=== PATIENT | male | born 1990 | race Caucasian/White ===

== ENCOUNTER 2023-04-16 19:23 | Emergency (ER) | payer SELFPAY ==
[2023-04-16] VITALS (31 sets, daily range): BP systolic 135–153; BP diastolic 74–88; PULSE 79–109; RESP 11–25; TEMP 36.8; O2SAT 98–100; BMI 18.1
--- NOTE | 2023-04-16 19:26 | ECG_ITS ---
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
--- NOTE | 2023-04-16 19:33 | CT_ITS ---
The [address] [address] Patient Name: GRISEL TAVERAS MRN: [id number] date: 1990 Sex: M Assigned Patient Location: ER Current Patient Location: ER Accession/Order Number: [id number] Exam Date: 04/16/2023 20:00 Report Date: 04/16/2023 20:32 At the request of: JACK ODOM Procedure: CT cervical spine wo con EXAMINATION: CT cervical spine wo con HISTORY: injury - TECHNIQUE: CT cervical spine without contrast. All CT scans at this facility use dose modulation, iterative reconstruction, and/or weight based dosing when appropriate to reduce radiation dose to as low as reasonably achievable. COMPARISON: None. RESULT: Vertebral body heights and alignment are preserved. Craniocervical junction is maintained. No acute fracture or aggressive osseous abnormality. No significant degenerative disc disease. Paraspinal soft tissues are within normal limits. Imaged lung apices are clear. CT/CT cervical spine wo con IMPRESSION: No acute osseous abnormality of the cervical spine. Electronically authenticated by: LUISA HUYNH Date: 04/16/2023 20:32
--- NOTE | 2023-04-16 19:33 | CT_ITS ---
The [address] [address] Patient Name: GRISEL TAVERAS MRN: [id number] date: 1990 Sex: M Assigned Patient Location: ER Current Patient Location: ER Accession/Order Number: [id number] Exam Date: 04/16/2023 20:00 Report Date: 04/16/2023 20:29 At the request of: JACK ODOM Procedure: CT head/brain wo con EXAM: CT head/brain wo con HISTORY: injury with seizures COMPARISON: None. TECHNIQUE: Multiple computed tomograms of the head were obtained, with sagittal and coronal reconstructions. Radiation reduction technique and algorithms are utilized during the study. FINDINGS: The ventricles are not enlarged, the lateral ventricles are slightly asymmetric but within normal variation, and the third ventricles in the midline. The sylvian fissures and cortical sulci are unremarkable. There is no evidence of an intracranial hemorrhage, mass lesion or apparent acute infarct. There is a small round fluid collection seen along the inferior aspect of the basal ganglia on the left. No other abnormality is seen in the deep white matter. The cerebellum and visualized brainstem are intact. The visualized paranasal sinuses are clear, and the frontal sinuses are undeveloped. The middle ears are aerated. The mastoid sinuses are clear. There is no apparent acute skull fracture. CT/CT head/brain wo con IMPRESSION: There is no evidence of an intracranial hemorrhage, mass lesion or apparent acute infarct. A small fluid collection along the inferior and outer aspect of the basal ganglia on the left may be a remote infarct or possibly prominence of the perivascular spaces. The paranasal sinuses are clear. There is no apparent acute skull fracture. Direct comparison with a previous study may be helpful in determining the chronicity of these findings. If the patient's symptoms persist and further evaluation is clinically indicated then perhaps an MRI the brain would be helpful. Electronically authenticated by: RAVINDER MCKEON Date: 04/16/2023 20:29
--- NOTE | 2023-04-16 19:35 | ED.SEIZURE1 ---
HPI - Seizure General Chief Complaint: Seizure Stated Complaint: SEIZURE Time Seen by Provider: 04/16/23 19:27 Mode of arrival: ambulance History of Present Illness HPI Narrative: patient arrested by Police. At Police station had a seizure. seizure lasted about 30 seconds. Reportedly able to communicate with police during the seizure. Arrives awake and cooperative. Per Police he informed them of his of multiple personality disorder. Answering question in 3rd person. States that he has a history of seizure when anxious or upset. states the he is not sure where he works and that he doesn't know where they are. Then remembers that he works at the [employer]. States in the past was treated for his condition but not seeing anyone now. MD complaint: Reports possible seizure Related Data Allergies Allergy/AdvReac Type Severity Reaction Status Date / Time No Known Drug Allergies Allergy Verified 04/16/23 19:27 Review of Systems ROS Status of ROS 10 or more systems reviewed and unremarkable except as noted in history and below Exam Constitutional Vital Signs, click to edit/add: Last Vital Signs Temp 98.2 F 04/16/23 19:24 Pulse 109 H 04/16/23 23:50 Resp 13 04/16/23 23:50 BP 135/74 04/16/23 23:52 Pulse Ox 97 04/17/23 01:30 O2 Del Method Room Air 04/16/23 19:24 Common normals: no apparent distress, average body habitus and alert HENMT Other: focl contusion 3cm midline anterior parietal scalp Eye Common normals: PERRL, EOMs intact bilaterally and conjunctivae normal Respiratory Common normals: normal respiratory effort, no retractions, no use of accessory muscles and clear to auscultation bilaterally Cardio Common normals: regular rate, regular rhythm, S1 normal heart sound and S2 normal heart sound GI Common normals: Normal to inspection, nondistended, normoactive bowel sounds present, soft to palpation and non-tender Extremity Common normals: normal to inspection and full ROM Neuro Common normals: CN's II-XII intact bilaterally, moves all extremities, no focal motor deficits and no sensory deficits noted Psych Appearance: well kempt Course Vital Signs Vital signs: Vital Signs Temperature 98.2 F 04/16/23 19:24 Pulse Rate 100 H 04/16/23 19:24 Respiratory Rate 18 04/16/23 19:24 Blood Pressure 153/88 H 04/16/23 19:24 Pulse Oximetry 100 04/16/23 19:24 Oxygen Delivery Method Room Air 04/16/23 19:24 Temperature 98.2 F 04/16/23 19:24 Pulse Rate 109 H 04/16/23 23:50 Respiratory Rate 13 04/16/23 23:50 Blood Pressure 135/74 04/16/23 23:52 Pulse Oximetry 97 04/17/23 01:30 Oxygen Delivery Method Room Air 04/16/23 19:24 MDM - Seizure MDM Narrative Medical decision making narrative: mental health contacted due to patient history of multiple personality disorder. They called his job and found out he had threatened staff at his job.He apparently had left and then came back to the store threatening to harm his boss. this is where the police got involved. mental health is concerned he is a danger to others. Patient did have another seizure while at CT and bumped his head. He now wakes up and identifies himself as Ronaldo and not He or him mental health was able to talk to ex girlfriend of the patient who gives history of schizophrenia. she also spke to the police and they had concerns that the patient wanted to harm his boss. Given the overall picture of mental decline, homicidal ideas the patient was pink slip and accepted for admission at [address] Lab Data Labs: Lab Results 04/16/23 04/16/23 04/16/23 Range/Units 00:00 19:31 19:50 WBC 9.1 (4.0-11.0) 10^3/uL RBC 3.91 L (4.70-6.10) 10^6/uL Hgb 13.0 L (14.0-18.0) g/dL Hct 39.0 L (42.0-54.0) % MCV 99.7 H (80.0-94.0) fL MCH 33.2 (25.9-34.0) pg MCHC 33.3 (29.9-35.2) g/dL RDW 12.3 (11.0-15.0) % Plt Count 488 H (150-450) 10^3/uL MPV 8.7 L (9.5-13.5) fL Neut % (Auto) 64.0 (43.0-75.0) % Lymph % (Auto) 28.2 (20.5-60.0) % Sullivan % (Auto) 5.7 (1.7-12.0) % Eos % (Auto) 0.8 L (0.9-7.0) % Baso % (Auto) 0.7 (0.2-2.0) % Neut # (Auto) 5.8 (1.4-6.5) 10^3/uL Lymph # (Auto) 2.6 (1.2-3.8) 10^3/uL Sullivan # (Auto) 0.5 (0.3-0.8) 10^3/uL Eos # (Auto) 0.1 (0.0-0.7) 10^3/uL Baso # (Auto) 0.1 (0.0-0.1) 10^3/uL Abs Immat Gran (auto) 0.05 H (0.00-0.03) 10^3/uL Imm/Tot Granulo (auto) 0.6 H (0.0-0.5) % Sodium 135 L (136-145) mmol/L Potassium 3.7 (3.5-5.1) mmol/L Chloride 101 (98-107) mmol/L Carbon Dioxide 25.7 (21.0-32.0) mmol/L Anion Gap 12.0 BUN 11.0 (7.0-18.0) mg/dL Creatinine 0.86 (0.70-1.30) mg/dL Est GFR ( Amer) >60 (>=60) Est GFR (Non-Af Amer) >60 (>=60) BUN/Creatinine Ratio 12.8 Glucose 104 (74-106) mg/dL Calcium 8.6 (8.5-10.1) mg/dL Total Bilirubin 0.3 (0.2-1.0) mg/dL AST 15 (15-37) U/L ALT 18 (16-63) U/L Alkaline Phosphatase 56 (46-116) U/L Total Protein 7.4 (6.4-8.2) g/dL Albumin 3.8 (3.4-5.0) g/dL Globulin 3.6 g/dL Albumin/Globulin Ratio 1.1 Salicylates 3.7 (<=19.9) mg/dL Urine Opiates Screen Negative (NEGATIVE) Ur Buprenorphine Scrn Negative (NEGATIVE) Ur Oxycodone Screen Negative (NEGATIVE) Urine Methadone Screen Negative (NEGATIVE) Ur Propoxyphene Screen Negative (NEGATIVE) Acetaminophen <2.0 L (10.0-30.0) ug/mL Ur Barbiturates Screen Negative (NEGATIVE) U Tricyclic Antidepress Negative (NEGATIVE) Ur Phencyclidine Scrn Negative (NEGATIVE) Ur Amphetamines Screen Positive A (NEGATIVE) U Methamphetamines Scrn Positive A (NEGATIVE) U Benzodiazepines Scrn Positive A (NEGATIVE) Urine Cocaine Screen Negative (NEGATIVE) U Cannabinoids Screen Positive A (NEGATIVE) Ethanol Quant 25 mg/dL POC Glucose 102 (74-106) mg/dL Discharge Plan Discharge Chief Complaint: Seizure Clinical Impression: Multiple-personality disorder, Seizure, Homicidal ideations Patient Disposition: [facility] Discharge Location: [facility] Discharge location: [address] [place] [address]
--- NOTE | 2023-04-16 19:39 | PC.NURSE ---
Pt presents to ER via EMS followed by PD Pt was arrested for Menicing by Deborah PETER When they brought him back to the police station, pt began having a seizure Per EMS pt repeatedly had brief 30 second seizures in which his body would tense up Pt was able to talk immediately afterwards and stated he has a split personality Pt identifies at [facility] Pt states neither him nor Ronaldo take any medications but Ronaldo does have a seizure disorder, breakthrough seizures Pt states this happens when his anxiety gets too high PD at bedside
[2023-04-16 19:42] LABS: Basophils Absolute Auto 0.1 10^3/uL (0.0-0.1); Basophils Percent Auto 0.7 % (0.2-2.0); Eosinophils Absolute Auto 0.1 10^3/uL (0.0-0.7); Eosinophils Percent Auto 0.8 % (0.9-7.0); Immature Granulocytes Abs Auto 0.05 10^3/uL (0.00-0.03); Immature Granulocytes Pct Auto 0.6 % (0.0-0.5); Lymphocytes Absolute Auto 2.6 10^3/uL (1.2-3.8); Lymphocytes Percent Auto 28.2 % (20.5-60.0); Mean Corpuscular HGB Conc 33.3 g/dL (29.9-35.2); Mean Corpuscular Hemoglobin 33.2 pg (25.9-34.0); Mean Corpuscular Volume 99.7 fL (80.0-94.0); Mean Platelet Volume 8.7 fL (9.5-13.5); Monocytes Absolute Auto 0.5 10^3/uL (0.3-0.8); Monocytes Percent Auto 5.7 % (1.7-12.0); Neutrophils Absolute Auto 5.8 10^3/uL (1.4-6.5); Platelet Count 488 10^3/uL (150-450); Red Blood Count 3.91 10^6/uL (4.70-6.10); Red Cell Distribution Width 12.3 % (11.0-15.0); White Blood Count 9.1 10^3/uL (4.0-11.0)
[2023-04-16 19:51] LABS: Glucometer 102 mg/dL (74-106)
[2023-04-16 19:57] LABS: Ethanol 25 mg/dL; Salicylate 3.7 mg/dL (<=19.9)
[2023-04-16 19:59] LABS: Alanine Aminotransferase 18 U/L (16-63); Albumin Globulin Ratio 1.1; Albumin Level 3.8 g/dL (3.4-5.0); Alkaline Phosphatase 56 U/L (46-116); Aspartate Amino Transferase 15 U/L (15-37); BUN Creatinine Ratio 12.8; Bilirubin Total 0.3 mg/dL (0.2-1.0); Calcium 8.6 mg/dL (8.5-10.1); Carbon Dioxide 25.7 mmol/L (21.0-32.0); Chloride 101 mmol/L (98-107); Estimated GFR (African America >60 (>=60); Estimated GFR (Non-African Ame >60 (>=60); Globulin 3.6 g/dL; Glucose 104 mg/dL (74-106); Potassium 3.7 mmol/L (3.5-5.1); Sodium 135 mmol/L (136-145); Total Protein 7.4 g/dL (6.4-8.2)
[2023-04-16 20:01] LABS: Acetaminophen <2.0 ug/mL (10.0-30.0)
[2023-04-16] MEDS: LORAZEPAM 2 MG/ML 1 ML VIAL 1 MG IV (20:14)
--- NOTE | 2023-04-16 20:15 | PC.NURSE ---
This nurse was called over to CT as pt was seizing again Per Dr. Esqueda 1mg of Ativan was given but pt was no longer seizing when this nurse got to CT Pt was seated upright on CT table stating he was Ronaldo Siddiqui and he did not know what was going on or what had happened A new abrasion was present to pt's nose
[2023-04-16] MEDS: LEVETIRACETAM 1,000 MG in 0.9 % SODIUM CHLORIDE 100 ML 440 MG IV (20:25)
[2023-04-17] VITALS (10 sets, daily range): O2SAT 96–99
[2023-04-17 00:38] LABS: Amphetamine Screen Urine POSITIVE (NEGATIVE); Barbiturates Screen Urine NEGATIVE (NEGATIVE); Benzodiazepines Screen Urine POSITIVE (NEGATIVE); Buprenorphine Screen Urine NEGATIVE (NEGATIVE); Cannabinoid Screen Urine POSITIVE (NEGATIVE); Cocaine Screen Urine NEGATIVE (NEGATIVE); Methadone Screen Urine NEGATIVE (NEGATIVE); Methamphetamines Screen Urine POSITIVE (NEGATIVE); Opiate Screen Urine NEGATIVE (NEGATIVE); Oxycodone Screen Urine NEGATIVE (NEGATIVE); Phencyclidine Screen Urine NEGATIVE (NEGATIVE); Tricyclic Antidepressant Urine NEGATIVE (NEGATIVE)
== END 2023-04-17 02:08 ==
PROVIDERS: Emergency Provider Internal Medicine
DX: F44.81 Dissociative identity disorder (principal); R56.9 Unspecified convulsions; R45.850 Homicidal ideations
CPT/HCPCS: 36415; 36416; 70450; 72125; 80053; 80179; 80307; 80320; 80329; 82948; 85025; 93005; 96365; 96375; 99285